=== PATIENT | female | born 1975 | race Caucasian/White ===

== ENCOUNTER 2021-06-08 10:45 | Outpatient (CLI) | payer BC, SELFPAY ==
--- NOTE | ~2021-06-08 | XR_ITS ---
EXAMINATION: XR abdomen/kub 1V INDICATION: History of kidney stones TECHNIQUE: Supine views of the abdomen were obtained on 2 radiographs. COMPARISON: None FINDINGS: There is a questionable 2 mm stone of the right kidney. No left-sided urolithiasis is ident ified although sensitivity is limited by overlying bowel contents. No stones are identified along the expected courses of the ureters or within the bladder. There are no dilated loops of bowel. Tubal li gation clips are noted in the pelvis. IMPRESSION: 1. Possible punctate right nephrolithiasis. Reviewed, dictated and finalized at location B.
== END 2021-06-08 10:46 | disposition home or self-care (01) ==
PROVIDERS: PCP Nurse Practitioner Family; Visit Provider Nurse Practitioner Family
DX: Z87.442 Personal history of urinary calculi (principal)
CPT/HCPCS: 74018

== ENCOUNTER 2021-09-02 15:54 | Emergency (ER) | payer BC, SELFPAY ==
--- NOTE | ~2021-09-02 | CT_ITS ---
EXAMINATION: CT abdomen pelvis w con DATE: 09/02/2021 18:58 INDICATION: Left flank pain radiating to the abdomen. TECHNIQUE: Computed tomography (CT) of the abdomen and pelvis was performed with 100 mL Omnipaque 350 intravenous contrast. Automated exposure control and iterative reconstruction technique were employe d. The dose-length product was 1071.05 mGy-cm. COMPARISON: None. FINDINGS: The visualized portions of the lung bases demonstrate mild atelectasis. No pleural effusion . The heart size is normal. No pericardial effusion. The liver, gallbladder, spleen, pancreas, and ad renal glands are normal. There is a 2 mm stone in right kidney. There is a 1 mm stone in left kidney. There is a left inguinal hernia containing fat. There are no dilated loops of bowel. The appendix is normal. There is a small supraumbilical ventral hernia containing fat. There is mild periportal lymp hadenopathy, likely reactive. There is a 2.2 cm dominant follicle in left ovary. There is a 13 mm cys t in the uterus. There is mild thoracic spondylosis. IMPRESSION: 1. Left inguinal hernia containing fat. 2. Small bilateral nonobstructing kidney stones. 3. Mild periportal lymphadenopathy, likely reactive. 4. Small supraumbilical ventral hernia containing fat. Reviewed, dictated and finalized at location A.
[2021-09-02 16:16] VITALS: BP 120/73; PULSE 101; RESP 14; TEMP 36.4; O2SAT 99
[2021-09-02 16:32] LABS: Basophils Percent Auto 0.4 % (0.2-1.2); Eosinophils Absolute Auto 0.4 K/mm3 (0-0.3); Eosinophils Percent Auto 4.6 % (0-4.4); Hematocrit 39.4 % (37.0-47.0); Hemoglobin 12.6 g/dL (12.0-15.0); Immature Granulocyte Absolute 0.02 K/mm3 (0.00-0.031); Immature Granulocyte Percent A 0.2 % (0-0.5); Lymphocytes Absolute Auto 1.99 K/mm3 (0.9-3.2); Lymphocytes Percent Auto 20.8 % (18.3-44.2); Mean Corpuscular Hemoglobin 28.5 pg (26-34); Mean Corpuscular Volume 89.1 fl (80-100); Mean Platelet Volume 9.8 fl (7.4-10.4); Monocytes Absolute Auto 0.6 K/mm3 (0.1-0.6); Monocytes Percent Auto 6.1 % (2.6-8.5); Neutrophils Absolute Auto 6.5 K/mm3 (1.3-6.7); Neutrophils Percent Auto 67.9 % (45.5-73.1); Platelet Count Result 317 k/mm3 (150-375); Red Blood Count 4.42 M/mm3 (4.2-5.4); Red Cell Distribution Width 13.4 % (11.5-14.5); White Blood Count 9.6 K/mm3 (4.5-10.0)
[2021-09-02 16:42] LABS: Alanine Aminotransferase 39 U/L (4-35); Albumin Level 4.1 g/dL (3.5-5.1); Alkaline Phosphatase 103 U/L (38-126); Anion Gap 7 mmol/L (8-16); Aspartate Amino Transferase 41 U/L (14-36); Bilirubin,Total 0.7 mg/dL (0.2-1.3); Blood Urea Nitrogen 13 mg/dL (7-17); Calcium 9.3 mg/dL (8.4-10.2); Carbon Dioxide 29 mmol/L (22-30); Chloride 104 mmol/L (98-107); Estimated CRCL calculation 103 ml/min; Estimated Glomerular Filt Rate > 60; Glucose 140 mg/dL (65-110); Lipase 94 U/L (23-300); Sodium 140 mmol/L (137-145)
[2021-09-02 17:19] LABS: Add Urine Microscopic? YES; Appearance Urine Clear (Clear); Bilirubin Urine Negative (Negative); Blood Urine Negative (Negative); Color Urine Yellow (Yellow); Glucose Urine UA Negative (Negative); Ketones Urine Negative (Negative); Leukocyte Esterase Ur Trace LEU/UL (Negative); Nitrate Urine Negative (Negative); Protein Urine Negative (Negative); Specific Grav Ur 1.019 (1.001-1.035); Urobilinogen Urine Negative mg/dL (<2.0)
[2021-09-02 17:24] LABS: Bacteria Urine Trace /hpf; RBC Urine 0-2 /hpf (0-2); Squamous Epithelial Cell Urine Few /hpf (Few); WBC Urine 0-3 /hpf (0-3)
[2021-09-02 17:43] VITALS: BP 107/78; PULSE 99; RESP 20; TEMP 36.9; O2SAT 100
[2021-09-02 17:58] VITALS: BP 114/63; PULSE 98; RESP 24; O2SAT 100
--- NOTE | 2021-09-02 18:28 | ED.ABDPAIN ---
HPI - Abdominal Pain General Chief Complaint: Abdominal Pain Stated Complaint: L FLANK/ABD PAIN HX STONES Time Seen by Provider: 09/02/21 17:40 Source: patient Mode of arrival: ambulatory Limitations: no limitations History of Present Illness HPI narrative: This is a 46 year old female that presents to the emergency department for left-sided flank pain present over the last couple of days. Reports the pain is nonradiating to her abdomen. Associated with nausea. She has been taking anti-inflammatories with some relief. Reports she saw her urologist today who started her on Flomax for possible kidney stone. Denies fever, vomiting, dysuria, or diarrhea. Related Data Home Medications Medication Instructions Recorded Confirmed azathioprine 09/02/21 09/02/21 hydroxychloroquine PO 09/02/21 magnesium oxide mg 09/02/21 mycophenolate mofetil PO 09/02/21 pantoprazole PO 09/02/21 Allergies Allergy/AdvReac Type Severity Reaction Status Date / Time amoxicillin Allergy Rash Verified 09/02/21 17:47 Review of Systems Review of Systems: CONSTITUTIONAL: Denies fever, GASTROINTESTINAL: Reports abdominal pain, nausea. Denies vomiting, or diarrhea. GENITOURINARY: Denies dysuria or hematuria. All systems reviewed & are unremarkable except as noted in HPI and below PMFSH Past Medical History Medical History (Updated 09/02/21 @ 20:19 by Annia Ryder PA-C) History of gastroesophageal reflux (GERD) Surgical History Surgical History (Updated 09/02/21 @ 18:38 by Annia Ryder PA-C) History of tubal ligation Social History Social History (Updated 09/02/21 @ 18:37 by Annia Ryder PA-C) Substance use: never Exam Narrative: GENERAL: Well-appearing, well-nourished, and in no acute distress. HEAD: Normocephalic, atraumatic. EYES: EOMI. CHEST: Clear to auscultation. No respiratory distress. No wheezes rales or rhonchi HEART: Regular rate and rhythm. No murmur heard. Normal peripheral pulses. ABDOMEN: Soft, nontender, nondistended, normal active bowel sounds. No CVA tenderness EXTREMITIES: Normal range of motion. No edema. SKIN: Warm, dry, no rash. NEURO: No focal deficits. Alert and oriented x3. PSYCH: Normal mood and affect Course Vital Signs Vital signs: Vital Signs Temperature 97.5 F L 09/02/21 16:16 Pulse Rate 101 H 09/02/21 16:16 Respiratory Rate 14 09/02/21 16:16 Blood Pressure 120/73 09/02/21 16:16 Pulse Oximetry 99 09/02/21 16:16 Temperature 98.4 F 09/02/21 17:43 Pulse Rate 99 09/02/21 17:43 Respiratory Rate 20 09/02/21 17:43 Blood Pressure 107/78 09/02/21 17:43 Pulse Oximetry 100 09/02/21 17:43 MDM - Abdominal Pain MDM Narrative Medical decision making narrative: Patient presents to the emergency department for left flank pain and left abdominal pain present over the last couple of days. She is afebrile and nontoxic-appearing. Vitals are stable. CBC without concerning findings. Metabolic panel with mild transaminitis. Lipase is normal. UA without evidence of infection. Bedside test is negative. CT scan of the abdomen and pelvis shows a left inguinal hernia containing fat. Shows nonobstructive kidney stones. Shows small supraumbilical hernia containing fat. Also shows mild periportal lymphadenopathy, likely reactive. Patient was updated on case findings. Unsure of exact etiology of left flank and left lower quadrant pain. 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 She was given warnings to return to the ER Lab Data Attestation: I reviewed the patient's lab results. Result diagrams: 09/02/21 16:23 09/02/21 16:23 Labs: Lab Results 09/02/21 09/02/21 09/02/21 Range/Units 16:23 16:23 16:23 WBC 9.6 (4.5-10.0) K/mm3 RBC 4.42 (4.2-5.4) M/mm3 Hgb 12.6 (12.0-15.0) g/dL Hct 39.4 (37.0-47.0) % MCV 89.1 (80-100) fl MCH 28.5 (26-34) pg MCHC 32.0
[2021-09-02 18:39] VITALS: BP 113/75; PULSE 88; RESP 20; O2SAT 100
[2021-09-02] MEDS: MORPHINE SULFATE (*CRX) 4 MG/ML INJ IV PUSH (18:41)
[2021-09-02] MEDS: ONDANSETRON INJ 4 MG/2 ML VIAL IV PUSH (18:42)
[2021-09-02] MEDS: SODIUM CHLORIDE 0.9% IV 1,000 ML 999 ML IV CONT (18:42)
[2021-09-02 20:00] VITALS: BP 111/68; PULSE 85; RESP 22; O2SAT 99
[2021-09-02 20:40] VITALS: BP 111/68; PULSE 86; RESP 20; TEMP 36.8; O2SAT 99
== END 2021-09-02 20:40 | disposition home or self-care (01) ==
PROVIDERS: Emergency Provider Emergency Medicine; PCP Nurse Practitioner Family
DX: K40.90 Unilateral inguinal hernia, without obstruction or gangrene, not specified as recurrent (principal); R10.32 Left lower quadrant pain; R74.01 Elevation of levels of liver transaminase levels; K21.9 Gastro-esophageal reflux disease without esophagitis
CPT/HCPCS: 36415; 74177; 80053; 81001; 81025; 83690; 85025; 96361; 96365; 96375; 99284; J0131; J2270; J2405; J7030; Q9967

== ENCOUNTER 2022-03-04 14:34 | Emergency (ER) | payer BC, SELFPAY ==
[2022-03-04 14:42] VITALS: BP 106/69; PULSE 88; RESP 16; TEMP 36.3; O2SAT 100
--- NOTE | 2022-03-04 15:05 | ED.URI ---
HPI - URI/Sore Throat General Chief Complaint: Upper Respiratory Infection Stated Complaint: SORE THROAT/NEEDS RETURN TO WORK NOTE Time Seen by Provider: 03/04/22 15:05 Source: patient, RN notes reviewed and old records reviewed Mode of arrival: ambulatory Limitations: no limitations History of Present Illness HPI Narrative: 46-year-old female who presents to [facility] with complaints of 1 week duration of sore throat, left ear pain, nasal congestion and drainage, intermittent cough. Patient reports she did do a Covid test on the which was negative. She reports she has had COVID vaccinations and COVID also in November2021, has not yet had the booster. She states she has been taking Tylenol and NyQuil DayQuil sinus medication with no resolution of symptoms. Patient states her left ear is throbbing and sharp rates pain 5 out of 10 with some pain also in the left side of her neck. MD elicited complaint: other (Left ear pain) Related Data Home Medications Medication Instructions Recorded Confirmed azathioprine 09/02/21 09/02/21 hydroxychloroquine PO 09/02/21 magnesium oxide mg 09/02/21 mycophenolate mofetil PO 09/02/21 pantoprazole PO 09/02/21 meloxicam 03/04/22 nifedipine PO 03/04/22 Allergies Allergy/AdvReac Type Severity Reaction Status Date / Time amoxicillin Allergy Rash Verified 03/04/22 14:38 Review of Systems Review of Systems: CONSTITUTIONAL: No known fever, positive chills, or sweats. EYES: Denies visual changes, redness, or discharge. ENT: Positive rhinorrhea, congestion, sore throat, left otalgia. CARDIOVASCULAR: Denies chest pain, palpitations, or edema. RESPIRATORY: Positive cough denies dyspnea. GASTROINTESTINAL: Denies abdominal pain, nausea, vomiting, or diarrhea. GENITOURINARY: Denies dysuria or hematuria. SKIN: Denies rash or itching. MUSCULOSKELETAL: Denies back pain, joint pain, or myalgia. NEUROLOGIC: Denies headache, numbness, or weakness. PSYCHIATRIC: Denies anxiety or depression. All systems reviewed & are unremarkable except as noted in HPI and below PMFSH Past Medical History Medical History (Updated 03/04/22 @ 17:25 by Vanda Mcpherson NP) History of gastroesophageal reflux (GERD) Kidney stone Raynaud's disease, idiopathic Scleroderma Surgical History Surgical History (Updated 03/04/22 @ 17:24 by Vanda Mcpherson NP) History of lithotripsy History of tubal ligation Social History Social History (Updated 09/02/21 @ 18:37 by Annia Ryder PA-C) Substance use: never Comments At time of signature, agree with nursing past medical, surgical, social and family history. There is no relevant family history pertinent to the presenting complaint Exam Narrative: GENERAL: Well-appearing, well-nourished, and in no acute distress. HEAD: Normocephalic, atraumatic. EYES: PERRLA and EOMI. ENT: Nares red with clear rhinorrhea no epistaxis. Mucous membranes moist.TM's normal with good light reflex, throat red with no lesion or exudates, tonsils minimal swelling with uvula midline, some post nasal drainage present NECK: Supple. Lymphadenopathy CHEST: Clear to auscultation. No respiratory distress. SaO2 100% on room air, occasional cough with no dyspnea noted HEART: Regular rate and rhythm. No murmur heard. Normal peripheral pulses. ABDOMEN: Soft, nontender, nondistended, normal active bowel sounds. EXTREMITIES: Normal range of motion. No edema. SKIN: Warm, dry, no rash. NEURO: No focal deficits. Alert and oriented x3. Course Course Level of Care: Express Care Visit Vital Signs Vital signs: Vital Signs Temperature 36.3 C L 03/04/22 14:42 Pulse Rate 88 03/04/22 14:42 Respiratory Rate 16 03/04/22 14:42 Blood Pressure 106/69 03/04/22 14:42 Pulse Oximetry 100 03/04/22 14:42 Temperature 36.3 C L 03/04/22 14:42 Pulse Rate 88 03/04/22 14:42 Respiratory Rate 16 03/04/22 14:42 Blood Pressure 106/69 03/04/22 14:42 Pulse Oximetry 100 04
== END 2022-03-04 15:35 | disposition home or self-care (01) ==
PROVIDERS: Emergency Provider Registered Nurse; PCP Nurse Practitioner Family
DX: J06.9 Acute upper respiratory infection, unspecified (principal); K21.9 Gastro-esophageal reflux disease without esophagitis; I73.00 Raynaud's syndrome without gangrene; M34.9 Systemic sclerosis, unspecified; Z86.16 Personal history of COVID-19
CPT/HCPCS: 87081; 87880; 99213; G0463

== ENCOUNTER 2022-07-31 09:30 | Emergency (ER) | payer BC, SELFPAY ==
[2022-07-31 09:41] VITALS: BP 112/68; PULSE 80; RESP 16; TEMP 36.8; O2SAT 100
--- NOTE | 2022-07-31 09:59 | ED.URI ---
HPI - URI/Sore Throat General Chief Complaint: Ear Stated Complaint: HEAD COLD Time Seen by Provider: 07/31/22 10:00 Source: patient and RN notes reviewed Mode of arrival: ambulatory Limitations: no limitations History of Present Illness HPI Narrative: 47-year-old female presents with concern for 5-day history of cough, nasal congestion, postnasal drainage, sinus pressure. Reports she is taken DayQuil and NyQuil which help temporarily. She denies fever, bodies, chills, sweats. Reports she is taken COVID test at home that were negative MD elicited complaint: cough, rhinorrhea and nasal congestion Related Data Home Medications Medication Instructions Recorded Confirmed azathioprine 50 mg tablet 100 mg PO DAILY 09/02/21 07/31/22 hydroxychloroquine 200 mg tablet 400 mg PO DAILY 09/02/21 07/31/22 magnesium oxide 250 mg PO BID 09/02/21 07/31/22 mycophenolate mofetil 500 mg tablet 1,000 mg PO BID 09/02/21 07/31/22 pantoprazole 40 mg tablet,delayed 40 mg PO DAILY 09/02/21 07/31/22 release meloxicam 7.5 mg tablet 7.5 mg PO DAILY 03/04/22 07/31/22 nifedipine 30 mg tablet,extended 30 mg PO DAILY 03/04/22 07/31/22 release Allergies Allergy/AdvReac Type Severity Reaction Status Date / Time amoxicillin Allergy Rash Verified 07/31/22 09:40 Review of Systems Review of Systems: CONSTITUTIONAL: Denies malaise, chills, sweats, or fever. EYES: Denies visual changes, redness, or discharge. ENT: Reports rhinorrhea, congestion, otalgia and sore throat. CARDIOVASCULAR: Denies chest pain, palpitations, or edema. RESPIRATORY: Reports cough. Denies dyspnea. GASTROINTESTINAL: Denies abdominal pain, nausea, vomiting, diarrhea SKIN: Denies rash or itching. MUSCULOSKELETAL: Denies myalgia. NEUROLOGIC: Denies headache. All systems reviewed & are unremarkable except as noted in HPI and below PMFSH Past Medical History Medical History (Updated 07/31/22 @ 10:13 by Nazia Wang NP) History of gastroesophageal reflux (GERD) Kidney stone Raynaud's disease, idiopathic Scleroderma Surgical History Surgical History (Updated 03/04/22 @ 17:24 by Vanda Mcpherson NP) History of lithotripsy History of tubal ligation Social History Social History (Updated 09/02/21 @ 18:37 by Annia Ryder PA-C) Substance use: never Comments At time of signature, agree with nursing past medical, surgical, social and family history. There is no relevant family history pertinent to the presenting complaint Exam Narrative: GENERAL: Well-appearing, well-nourished, and in no acute distress. HEAD: Normocephalic EYES: PERRLA, conjunctivae clear ENT: Nares clear, turbinates edematous and erythematous, clear discharge. Mucous membranes moist. TM pearly zamudio with dull light reflex bilaterally; no tragal tenderness. Oropharynx not erythematous without lesions. Tonsils not enlarged and without exudate, no drooling, no hoarseness, no trismus, uvula midline. NECK: Supple. No lymphadenopathy CHEST: Clear to auscultation, breath sounds equal. No wheezing, rhonchi, rales, or stridor. No respiratory distress, speaks in full sentences. HEART: Regular rate and rhythm. No murmur heard. SKIN: Warm, dry, no rash. NEURO: Alert and oriented x3. PSYCH: Normal mood and affect Course Course Emergency Course: Patient is aware of diagnosis, understands and agrees to treatment plan. Anticipatory guidance given. Patient agrees to follow-up as directed and is aware of reasons to seek care at the emergency department. Portions of this record may have been created with voice recognition software Level of Care: Express Care Visit Vital Signs Vital signs: Vital Signs Temperature 98.2 F 07/31/22 09:41 Pulse Rate 80 07/31/22 09:41 Respiratory Rate 16 07/31/22 09:41 Blood Pressure 112/68 07/31/22 09:41 Pulse Oximetry 100 07/31/22 09:41 Temperature 98.2 F 07/31/22 09:41 Pulse Rate 80 07/31/22 09:41 Respiratory Rate 16 07/31/22 09:41 Blood
== END 2022-07-31 10:18 | disposition home or self-care (01) ==
PROVIDERS: Emergency Provider Nurse Practitioner; PCP Nurse Practitioner Family
DX: J06.9 Acute upper respiratory infection, unspecified (principal); K21.9 Gastro-esophageal reflux disease without esophagitis; I73.00 Raynaud's syndrome without gangrene
CPT/HCPCS: 99213; G0463

== ENCOUNTER 2022-10-13 12:46 | Emergency (ER) | payer BC, SELFPAY ==
[2022-10-13 13:12] VITALS: BP 144/74; PULSE 95; RESP 16; TEMP 37.2; O2SAT 99
--- NOTE | 2022-10-13 13:34 | ED.URI ---
HPI - URI/Sore Throat General Chief Complaint: Upper Respiratory Infection Stated Complaint: SORE THROAT/COUGH Time Seen by Provider: 10/13/22 13:25 Source: patient Mode of arrival: ambulatory Limitations: no limitations History of Present Illness HPI Narrative: Patient presents today with a 4 day history of sore throat, rhinorrhea, and occasional cough. She also has a rash to her abdomen that is pruritic. Denies fever. She currently rates her sore throat 05/30 which is most severe with swallowing. She has taken Tylenol and an antihistamine pill with some relief. Related Data Home Medications Medication Instructions Recorded Confirmed hydroxychloroquine 200 mg tablet 400 mg PO DAILY 09/02/21 07/31/22 magnesium oxide 250 mg PO BID 09/02/21 07/31/22 mycophenolate mofetil 500 mg tablet 1,000 mg PO BID 09/02/21 07/31/22 pantoprazole 40 mg tablet,delayed 40 mg PO DAILY 09/02/21 07/31/22 release meloxicam 7.5 mg tablet 7.5 mg PO DAILY 03/04/22 07/31/22 nifedipine 30 mg tablet,extended 30 mg PO DAILY 03/04/22 07/31/22 release Allergies Allergy/AdvReac Type Severity Reaction Status Date / Time amoxicillin Allergy Rash Verified 10/13/22 13:16 Review of Systems Review of Systems: CONSTITUTIONAL: Denies body aches, fever, chills, or sweats. EYES: Denies visual changes, redness, or discharge. ENT: Denies congestion, or otalgia.+ sore throat, rhinorrhea CARDIOVASCULAR: Denies chest pain, palpitations, or edema. RESPIRATORY: Denies dyspnea.+ cough GASTROINTESTINAL: Denies abdominal pain, nausea, vomiting, or diarrhea. GENITOURINARY: Denies dysuria or hematuria. SKIN: Denies itching, or wounds.+ rash MUSCULOSKELETAL: Denies back pain, joint pain, or myalgia. NEUROLOGIC: Denies headache, numbness, tingling, or weakness. PSYCH: Denies depression or anxiety. [facility] Past Medical History Medical History History of gastroesophageal reflux (GERD) Kidney stone Raynaud's disease, idiopathic Scleroderma Surgical History Surgical History History of lithotripsy History of tubal ligation Social History Social History Substance use: never Comments At time of signature, I have reviewed and agree with nursing past medical, surgical, social and family history unless otherwise noted. Please see nursing chart for further information. There is no relevant family history pertinent to the presenting complaint Exam Narrative: GENERAL: Well-appearing, well-nourished, and in no acute distress. HEAD: Normocephalic, atraumatic. EYES: EOMI. No redness or drainage. Conjunctivae normal. ENT: Mucous membranes pink and moist. Nares clear. No rhinorrhea. TMs normal bilaterally. Throat mildly erythematous edema exudate. Uvula midline. NECK: Normal AROM. Supple. No lymphadenopathy. CHEST: No respiratory distress. Clear to auscultation. HEART: Regular rate and rhythm. No murmur appreciated. Normal peripheral pulses. ABDOMEN: Soft, nontender, nondistended, normal active bowel sounds. MUSCULOSKELETAL: No bony tenderness. EXTREMITIES: Normal range of motion. No edema. SKIN: Warm, dry. Capillary refill normal. Normal skin turgor. [place] tiny maculopapular rash across abdomen NEURO: No focal deficits. Alert and oriented x3. Gait steady. PSYCH: Normal affect. No signs of depression or anxiety. Course Course Level of Care: Express Care Visit Vital Signs Vital signs: Vital Signs Temperature 98.9 F 10/13/22 13:12 Pulse Rate 95 10/13/22 13:12 Respiratory Rate 16 10/13/22 13:12 Blood Pressure 144/74 H 10/13/22 13:12 Pulse Oximetry 99 10/13/22 13:12 Oxygen Delivery Room Air 10/13/22 13:12 Temperature 98.9 F 10/13/22 13:12 Pulse Rate 95 10/13/22 13:12 Respiratory Rate 16 10/13/22 13:12 Blood Pressure 144/74 H 10/13/22 13
== END 2022-10-13 13:43 | disposition home or self-care (01) ==
PROVIDERS: Emergency Provider Nurse Practitioner; PCP Nurse Practitioner Family
DX: J02.0 Streptococcal pharyngitis (principal); A38.9 Scarlet fever, uncomplicated; K21.9 Gastro-esophageal reflux disease without esophagitis; I73.00 Raynaud's syndrome without gangrene; M34.9 Systemic sclerosis, unspecified
CPT/HCPCS: 87880; 99213; G0463

== ENCOUNTER 2023-06-11 07:12 | Outpatient (CLI) | payer OTHER, SELFPAY ==
--- NOTE | ~2023-06-11 | MM_ITS ---
EXAMINATION: MM screening darian BI w herlinda HISTORY: Screening mammogram TECHNIQUE: Craniocaudal and mediolateral oblique 3-D tomosynthesis images were obtained and synthetic 2-D images were generated. CAD analysis was submitted and interpreted. COMPARISON: No prior mammogram is available for comparison at this institution. BREAST PARENCHYMAL COMPOSITION: There are scattered areas of fibroglandular density. FINDINGS: Occasional benign calcifications. There is no evidence of suspicious mass, calcification, o r architectural distortion to suggest malignancy in either breast. There has been no suspicious inter hyun change. IMPRESSION: 1. No mammographic evidence of malignancy. 2. Recommend routine screening mammography in one year. BI-RADS Category 2: Benign finding(s). Reviewed, dictated and finalized at location A.
== END 2023-06-11 07:13 | disposition home or self-care (01) ==
LOC: ANHIMG 07:14
PROVIDERS: PCP Nurse Practitioner Family; Visit Provider Internal Medicine
DX: Z12.31 Encounter for screening mammogram for malignant neoplasm of breast (principal)
CPT/HCPCS: 77063; 77067

== ENCOUNTER 2023-07-18 09:09 | Outpatient (CLI) | payer OTHER, SELFPAY ==
--- NOTE | ~2023-07-18 | XR_ITS ---
MODIFIED ESOPHAGRAM HISTORY: Oropharyngeal dysphagia TECHNIQUE: Modified barium esophagram was performed on 07/18/2023. I administered fluoroscopy and perf ormed the exam with speech pathologist. Patient was seated for lateral fluoroscopic imaging for cesar stion of thin liquids, pudding, solids and quantified amounts, followed by thin liquids in uncontroll ed amounts. This was recorded on tape. A single fluoroscopic spot image was also recorded. The DAP fo r this procedure was 0.654 Gycm2. The amount of fluoroscopy time used during this procedure was 1.0 m inutes. FINDINGS: Oral stage: Adequate function. Pharyngeal stage: Adequate function. Cervical/esophageal stage: Adequate function. IMPRESSION: Patient tolerated regular consistency oral feedings in the upright position. Please karina elate with speech pathologist findings and specific feeding recommendations. Reviewed, dictated and finalized at location A. IMPRESSION: Patient tolerated regular consistency oral feedings in the upright position. Please correlate with speech pathologist findings and specific feedi ng recommendations.
--- NOTE | 2023-07-18 10:51 | REHSTMBS ---
Assessment and note entered by Nathalie Nieves, [employer] Modified Barium Swallow Evaluation Feeding Type Recommended Oral Food Consistency Regular, Level 7 Liquid Consistency Thin (0) ST Clinical Summary MODIFIED BARIUM SWALLOW This patient was seen for a Modified Barium Swallow study at the request of her physician. Patient reports that she has increasing difficulty swallow dry foods such as breads and perla food cake. Patient denied difficulty swallowing liquids, medications, and even meats. Patient admitted to a history of sleep apnea and ulcer; upon questioning, she stated that she has a lot of heartburn but did not necessarily admit to gastroesophageal reflux until questioned by therapist. Patient was viewed in the lateral position to the level of C5/C6. She was presented with 1/2 teaspoon of thin liquid contrast medium per spoon, uncontrolled thin liquid contrast medium per cup and then per straw, pudding mixed with semi-solid contrast medium, and then crackers and fruit pieces, cut-up, and coated with the semi-solid mixture per spoon. She exhibited quick swallows with no evidence of penetration or aspiration and no significant pooling or residue after the swallows. Results indicate this patient's swallowing skills are within normal limits. She was instructed in the use of head flexion to assist with movement of material through the pharynx, to cut up breads and other dry items into smaller pieces, use soups and other liquids to assist with moisture on the dry breads; she voiced good understanding of recommendations. Further assessment of her esophagus/gastroesophageal reflux may be indicated. Thank you for this referral.
== END 2023-07-18 09:10 | disposition home or self-care (01) ==
PROVIDERS: PCP Internal Medicine; Visit Provider Internal Medicine
DX: R13.12 Dysphagia, oropharyngeal phase (principal)
CPT/HCPCS: 92611

== ENCOUNTER 2023-12-30 12:39 | Outpatient (CLI) | payer OTHER, SELFPAY ==
--- NOTE | ~2023-12-30 | XR_ITS ---
EXAMINATION: XR abdomen/kub 1V INDICATION: Left flank pain TECHNIQUE: Supine views of the abdomen were obtained on 2 radiographs. COMPARISON: CT from today FINDINGS: There is a 2 mm stone of the right kidney lower pole. No additional urolithiasis is identif ied. The bowel gas pattern is normal. There are surgical clips of the left pelvis. IMPRESSION: 1. Right nephrolithiasis. Reviewed, dictated and finalized at location B. L DIGGER IMPRESSION: 1. Right nephrolithiasis.
--- NOTE | ~2023-12-30 | CT_ITS ---
Non-contrast CT scan of the Abdomen and Pelvis Clinical indication: Left flank pain Technique: 2.5 mm axial scans were obtained through the abdomen and pelvis without intravenous or or al contrast. Dose reduction technique was used on this scan by utilizing automated exposure control a nd iterative reconstruction technique. The dose-length product (DLP) was 695.35 mGy-cm. COMPARISON: 09/02/2021 Findings: Images through the lung bases reveal no abnormalities. There are small nonobstructing renal calculi. No ureteral stone or hydronephrosis. The liver, spleen, pancreas, gallbladder, and adrenals appear normal. There is no aortic aneurysm. There is no evidence of bowel obstruction. Images through the pelvis were performed. There is no evidence of ascites or lymphadenopathy. Urinary bladder unremarkable. No pelvic mass seen. No ascites. Impression: Small bilateral nonobstructing renal stones. Reviewed, dictated and finalized at [facility]. KO KURA TUARUA Impression: Small bilateral nonobstructing renal stones.
== END 2023-12-30 12:40 | disposition home or self-care (01) ==
LOC: ANHIMG 12:41
PROVIDERS: PCP Internal Medicine; Visit Provider Urology
DX: N20.0 Calculus of kidney (principal); R10.9 Unspecified abdominal pain
CPT/HCPCS: 74018; 74176